=== PATIENT | male | born 1965 | race African-American/Black ===

== ENCOUNTER 2018-07-08 16:44 | Emergency (ER) | payer MEDICARE, MEDICAID ==
[~2018-07-08] VITALS: Ht 177.8 cm; Wt 80.5 kg
[~2018-07-08 16:44] MED LIST: AMLODIPINE10 MG PO; CLONIDINE0.1 MG PO; D32000 UNIT PO; LISINOP/HCTZ1 TA2 PO; LISINOP/HCTZ1 TAB PO; MYDRIACYL15 ML OD
[2018-07-08] MEDS ORDERED: KEFLEX500 M1 PO (19:17)
[2018-07-08 19:26] VITALS: BP 185/108
== END 2018-07-08 19:36 | disposition home or self-care (01) ==
LOC: ED 16:44
DX: L03.032 Cellulitis of left toe (principal); R50.9 Fever, unspecified

== ENCOUNTER 2018-08-05 03:45 | Emergency (ER) | payer MEDICARE, MEDICAID ==
[~2018-08-05] VITALS: Ht 177.8 cm; Wt 70.4 kg
[~2018-08-05 03:45] MED LIST changes: +KEFLEX500 M1 PO
[2018-08-05 04:23] LABS: HEMATOCRIT 39.4 % (39.0-50.0); HEMOGLOBIN 12.7 g/dl (14.0-18.0); IMMATURE GRANULOCYTES 0.3 % (0.0-5.0); MEAN CELL VOLUME 85.3 fL CALC (80.0-100.0); MEAN CORPUSCULAR HGB 27.5 pG CALC (26.0-32.0); MEAN CORPUSCULAR HGB CONC 32.2 g/L CALC (32.0-36.0); NEUT# 6.7 thou/uL (1.82-7.42); RED BLOOD COUNT 4.62 mill/uL (4.70-6.10); RED CELL DISTRI WIDTH 13.2 % (11.5-15.5)
[2018-08-05 04:39] LABS: ALBUMIN 4.4 g/dL (3.2-5.0); ALKALINE PHOSPHATASE 92 u/l (38-126); ANION GAP 19 (6-22 (CALC)); BILIRUBIN, TOTAL 0.7 mg/dL (0.0-1.4); BUN 33 mg/dL (9-20); BUN/CREATININE RATIO 15 (12-20 (CALC)); CARBON DIOXIDE 23 mmol/l (22-30); CHLORIDE 100 mmol/l (95-108); CREATININE 2.1 mg/dL (0.7-1.3); GFR 33 ML/MIN (>=60 (CALC)); GFR FOR AFR.AMER. 40 ML/MIN (>=60 (CALC)); MAGNESIUM 1.7 mg/dL (1.6-2.3); POTASSIUM 4.2 mmol/l (3.5-5.1); SGOT/AST 18 u/l (17-59); SODIUM 137 mmol/l (137-146); TOTAL PROTEIN 8.1 g/dL (6.3-8.2)
[2018-08-05 04:43] LABS: ETHYL ALCOHOL < 10 mg/dl (0-30)
[2018-08-05 05:15] LABS: URINE BILIRUBIN - DIPSTICK NEGATIVE (NEGATIVE); URINE BLOOD DIPSTICK NEGATIVE (NEGATIVE); URINE COLOR YELLOW; URINE GLUCOSE - DIPSTICK NEGATIVE (NEGATIVE); URINE KETONE NEGATIVE (NEGATIVE); URINE LEUK ESTERASE TRACE (NEGATIVE); URINE NITRITE - DIPSTICK NEGATIVE (Negative); URINE PROTEIN - DIPSTICK NEGATIVE (NEG-TRACE); URINE UROBILINOGEN - DIPSTICK 0.2 E.U./dL (0.2)
[2018-08-05 05:19] LABS: BARBITURATES NEGATIVE (NEGATIVE); COCAINE NEGATIVE (NEGATIVE); METHADONE NEGATIVE (NEGATIVE); OXCYCODONE NEGATIVE (NEGATIVE); TETRAHYDROCANNABIONOL NEGATIVE (NEGATIVE); TRICYLIC ANTIDEPRESSANTS NEGATIVE (NEGATIVE)
[2018-08-05] MEDS ORDERED: AMLODIPINE5 MG PO (06:31)
[2018-08-05 07:30] VITALS: BP 137/89
== END 2018-08-05 07:30 | disposition designated cancer center or children's hospital (05) ==
LOC: ED 03:45
PROVIDERS: Family Medicine
DX: T50.902A Poisoning by unspecified drugs, medicaments and biological substances, intentional self-harm, initial encounter (principal); H91.3 Deaf nonspeaking, not elsewhere classified; I10 Essential (primary) hypertension

== ENCOUNTER 2020-08-05 | Emergency (ER) | payer MEDICARE, MEDICAID ==
[~2020-08-05] MED LIST changes: +KEFLEX500 MG PO; +METOPROL TAR25 MG PO; +NORVASC5 M1 PO; +TAMSULOSIN0.4 MG PO
[2020-08-05 09:39] LABS: IMMATURE GRANULOCYTES 0.5 % (0.0-5.0); MEAN CELL VOLUME 86.7 fL CALC (80.0-100.0); MEAN CORPUSCULAR HGB 27.9 pG CALC (26.0-32.0); MEAN CORPUSCULAR HGB CONC 32.2 g/dL CAL (32.0-36.0); NEUT# 5.52 thou/uL (1.82-7.42); RED BLOOD COUNT 4.44 mill/uL (4.70-6.10); RED CELL DISTRI WIDTH 14.6 % (11.5-15.5)
[2020-08-05 09:40] LABS: HEMATOCRIT 38.5 % (39.0-50.0); HEMOGLOBIN 12.4 g/dl (14.0-18.0)
[2020-08-05 09:56] LABS: CREATININE 1.5 mg/dL (0.7-1.3)
[2020-08-05 10:08] LABS: ALBUMIN 4.6 g/dL (3.2-5.0); BILIRUBIN, TOTAL 0.7 mg/dL (0.0-1.4); TOTAL PROTEIN 8.7 g/dL (6.3-8.2)
[2020-08-05] MEDS ORDERED: INDOCIN25 MG PO (10:13)
== END 2020-08-05 10:25 | disposition home or self-care (01) ==
PROVIDERS: Emergency Medicine
DX: M10.072 Idiopathic gout, left ankle and foot (principal); I10 Essential (primary) hypertension; F17.200 Nicotine dependence, unspecified, uncomplicated

== ENCOUNTER 2021-10-29 12:32 | Emergency (ER) | payer MEDICARE, MEDICAID ==
[~2021-10-29] VITALS: Ht 185.4 cm; Wt 81.8 kg
[~2021-10-29 12:32] MED LIST changes: +INDOCIN25 MG PO
[2021-10-29] MEDS ORDERED: FAMCICLOVIR500 MG PO (13:01)
[2021-10-29 13:30] VITALS: BP 145/103
[2021-10-29] MEDS ORDERED: HYDROCO/APAP1 TA9 PO (13:46)
[2021-10-29 15:11] VITALS: BP 151/68
== END 2021-10-29 14:29 | disposition home or self-care (01) ==
LOC: ED 12:32
DX: B02.9 Zoster without complications (principal); I10 Essential (primary) hypertension; H91.90 Unspecified hearing loss, unspecified ear

== ENCOUNTER 2021-11-14 10:21 | Emergency (ER) | payer MEDICARE, MEDICAID ==
[2021-11-14] VITALS (8 sets, daily range): BP systolic 144–180; BP diastolic 101–128
[~2021-11-14] VITALS: Ht 185.4 cm; Wt 73.4 kg
[~2021-11-14 10:21] MED LIST changes: +FAMCICLOVIR500 MG PO; +HYDROCO/APAP1 TA9 PO
[2021-11-14 11:21] LABS: HEMOGLOBIN 13.8 g/dl (14.0-18.0); IMMATURE GRANULOCYTES 0.1 % (0.0-5.0); MEAN CELL VOLUME 87.6 fL CALC (80.0-100.0); MEAN CORPUSCULAR HGB 28.1 pG CALC (26.0-32.0); MEAN CORPUSCULAR HGB CONC 32.1 g/dL CAL (32.0-36.0); NEUT# 4.46 thou/uL (1.82-7.42); RED BLOOD COUNT 4.91 mill/uL (4.70-6.10); RED CELL DISTRI WIDTH 14.3 % (11.5-15.5)
[2021-11-14 12:18] LABS: ALBUMIN 4.4 g/dL (3.2-5.0); ALKALINE PHOSPHATASE 119 u/l (38-126); AMYLASE 124 u/l (30-110); BUN 12 mg/dL (9-20); BUN/CREATININE RATIO 9 (12-20 (CALC)); CHLORIDE 102 mmol/l (95-108); CREATININE 1.4 mg/dL (0.7-1.3); GFR FOR AFR.AMER. > 60 ML/MIN (>=60 (CALC)); GFR OTHER RACES 52 ML/MIN (>=60 (CALC)); LIPASE 58 u/l (23-300); POTASSIUM 3.9 mmol/l (3.5-5.1); SGOT/AST 26 u/l (17-59); SODIUM 138 mmol/l (137-146); TOTAL PROTEIN 8.7 g/dL (6.3-8.2)
[2021-11-14 12:32] LABS: ANION GAP 17 (6-22 (CALC)); BILIRUBIN, TOTAL 0.6 mg/dL (0.0-1.4); CARBON DIOXIDE 23 mmol/l (22-30)
[2021-11-14] MEDS ORDERED: GABAPENTIN300 M2 PO (14:55)
== END 2021-11-14 15:20 | disposition home or self-care (01) ==
LOC: ED 10:21
DX: B02.9 Zoster without complications (principal); I10 Essential (primary) hypertension; H91.90 Unspecified hearing loss, unspecified ear; T37.5X6A Underdosing of antiviral drugs, initial encounter; Z91.128 Patient's intentional underdosing of medication regimen for other reason

== ENCOUNTER 2021-11-25 09:56 | Emergency (ER) | payer MEDICARE, MEDICAID ==
[2021-11-25] VITALS (8 sets, daily range): BP systolic 168–193; BP diastolic 111–128
[~2021-11-25] VITALS: Ht 185.4 cm; Wt 77.2 kg
[~2021-11-25 09:56] MED LIST changes: +GABAPENTIN300 M2 PO
[2021-11-25 10:42] LABS: HEMATOCRIT 43.1 % (39.0-50.0); HEMOGLOBIN 13.9 g/dl (14.0-18.0); IMMATURE GRANULOCYTES 0.3 % (0.0-5.0); MEAN CORPUSCULAR HGB 28.4 pG CALC (26.0-32.0); MEAN CORPUSCULAR HGB CONC 32.3 g/dL CAL (32.0-36.0); NEUT# 3.85 thou/uL (1.82-7.42); RED BLOOD COUNT 4.9 mill/uL (4.70-6.10); RED CELL DISTRI WIDTH 14.3 % (11.5-15.5)
[2021-11-25 10:48] LABS: ALBUMIN 4.5 g/dL (3.2-5.0); BILIRUBIN, TOTAL 0.5 mg/dL (0.0-1.4); CREATININE 1.6 mg/dL (0.7-1.3); TOTAL PROTEIN 8.4 g/dL (6.3-8.2)
[2021-11-25] MEDS ORDERED: HYDROCO/APAP1 TA9 PO (10:59)
[2021-11-25] MEDS ORDERED: TYLENOL500 MG PO (10:59)
[2021-11-25] MEDS ORDERED: PREDNISOLO20 MG/5 ML PO (10:59)
[2021-11-25] MEDS ORDERED: IBUPROFEN600 MG PO (10:59)
[2021-11-25 11:01] LABS: POTASSIUM 4.7 mmol/l (3.5-5.1)
== END 2021-11-25 11:58 | disposition home or self-care (01) ==
LOC: ED 09:56
PROVIDERS: Family Medicine
DX: B02.29 Other postherpetic nervous system involvement (principal); I10 Essential (primary) hypertension; H91.90 Unspecified hearing loss, unspecified ear

== ENCOUNTER 2022-03-15 09:15 | Emergency (ER) | payer MEDICARE, MEDICAID ==
[2022-03-15] VITALS (12 sets, daily range): BP systolic 137–164; BP diastolic 90–112
[~2022-03-15] VITALS: Ht 185.4 cm; Wt 77.2 kg
[~2022-03-15 09:15] MED LIST changes: +IBUPROFEN600 MG PO; +PREDNISOLO20 MG/5 ML PO; +TYLENOL500 MG PO
[2022-03-15 10:12] LABS: HEMOGLOBIN 12.5 g/dl (14.0-18.0); IMMATURE GRANULOCYTES 0.2 % (0.0-5.0); MEAN CELL VOLUME 90.1 fL CALC (80.0-100.0); MEAN CORPUSCULAR HGB 28.9 pG CALC (26.0-32.0); MEAN CORPUSCULAR HGB CONC 32.1 g/dL CAL (32.0-36.0); NEUT# 4.88 thou/uL (1.82-7.42); RED BLOOD COUNT 4.33 mill/uL (4.70-6.10); RED CELL DISTRI WIDTH 15.6 % (11.5-15.5)
[2022-03-15 10:30] LABS: ALBUMIN 4.4 g/dL (3.2-5.0); ALKALINE PHOSPHATASE 84 u/l (38-126); ANION GAP 14 (6-22 (CALC)); BILIRUBIN, TOTAL 0.4 mg/dL (0.0-1.4); BUN 19 mg/dL (9-20); BUN/CREATININE RATIO 14 (12-20 (CALC)); CARBON DIOXIDE 29 mmol/l (22-30); CHLORIDE 106 mmol/l (95-108); CPK 165 u/l (52-200); CREATININE 1.4 mg/dL (0.7-1.3); GFR FOR AFR.AMER. > 60 ML/MIN (>=60 (CALC)); GFR OTHER RACES 52 ML/MIN (>=60 (CALC)); LIPASE 54 u/l (23-300); MAGNESIUM 1.4 mg/dL (1.6-2.3); POTASSIUM 4.1 mmol/l (3.5-5.1); SGOT/AST 26 u/l (17-59); SODIUM 145 mmol/l (137-146); TOTAL PROTEIN 8.2 g/dL (6.3-8.2)
[2022-03-15 10:58] LABS: URINE BILIRUBIN - DIPSTICK NEGATIVE (NEGATIVE); URINE BLOOD DIPSTICK TRACE-INTACT (NEGATIVE); URINE COLOR YELLOW; URINE GLUCOSE - DIPSTICK NEGATIVE (NEGATIVE); URINE KETONE NEGATIVE (NEGATIVE); URINE PROTEIN - DIPSTICK NEGATIVE (NEG-TRACE); URINE UROBILINOGEN - DIPSTICK 0.2 E.U./dL (0.2)
[2022-03-15 11:03] LABS: URINE LEUK ESTERASE LARGE (NEGATIVE); URINE NITRITE - DIPSTICK NEGATIVE (Negative); URINE RBC 0-2 RBC/hpf (0-5)
[2022-03-15 11:04] LABS: URINE BACTERIA FEW hpf; URINE EPITHELIAL CELLS FEW EPI/hpf (0-FEW); URINE WBC 20-50 WBC/hpf (0-5)
[2022-03-15] MEDS ORDERED: NEURONTIN300 MG PO (11:46)
[2022-03-15] MEDS ORDERED: MAGOX 400400 MG PO (11:46)
[2022-03-15] MEDS ORDERED: ACYCLOVIR800 MG PO (11:46)
[2022-03-15] MEDS ORDERED: PERCOCET 5/325M1 TAB PO (11:46)
[2022-03-15] MEDS ORDERED: OMNI-PAC300 MG PO (11:46)
== END 2022-03-15 14:10 | disposition home or self-care (01) ==
LOC: ED 09:15
PROVIDERS: Internal Medicine
DX: I10 Essential (primary) hypertension (principal); R25.8 Other abnormal involuntary movements; E16.2 Hypoglycemia, unspecified; B02.9 Zoster without complications; H91.90 Unspecified hearing loss, unspecified ear; F17.200 Nicotine dependence, unspecified, uncomplicated
CPT/HCPCS: J3475; Q9967

== ENCOUNTER 2022-12-20 15:18 | Emergency (ER) | payer MEDICARE, MEDICAID ==
[~2022-12-20] VITALS: Ht 185.4 cm; Wt 83.0 kg
[~2022-12-20 15:18] MED LIST changes: +ACYCLOVIR800 MG PO; +MAGOX 400400 MG PO; +NEURONTIN300 MG PO; +OMNI-PAC300 MG PO; +PERCOCET 5/325M1 TAB PO
[2022-12-20 15:33] VITALS: BP 124/102
[2022-12-20 16:31] LABS: URINE BILIRUBIN - DIPSTICK Negative (NEGATIVE); URINE BLOOD DIPSTICK Small (NEGATIVE); URINE GLUCOSE - DIPSTICK Negative (NEGATIVE); URINE KETONE Negative (NEGATIVE); URINE NITRITE - DIPSTICK Positive (Negative); URINE PH 5.5 (4.5-8.0); URINE PROTEIN - DIPSTICK Trace mg/dL (NEG-TRACE); URINE UROBILINOGEN - DIPSTICK 0.2 E.U./dL (0.2)
[2022-12-20 16:33] LABS: URINE COLOR Yellow; URINE LEUK ESTERASE Large (NEGATIVE)
[2022-12-20 16:40] LABS: BASO% 0.3 % (0-3); EOS% 0.6 % (0-8); HEMATOCRIT 38.6 % (39.0-50.0); HEMOGLOBIN 12.2 g/dl (14.0-18.0); IMMATURE GRANULOCYTES 0.2 % (0.0-5.0); LYMPH% 6.7 % (15-41); MEAN CELL VOLUME 86.4 fL CALC (80.0-100.0); MEAN CORPUSCULAR HGB 27.3 pG CALC (26.0-32.0); MEAN CORPUSCULAR HGB CONC 31.6 g/dL CAL (32.0-36.0); MONO% 2.6 % (2-13); NEUT# 10.35 thou/uL (1.82-7.42); NEUT% 89.6 % (42-76); RED BLOOD COUNT 4.47 mill/uL (4.70-6.10)
[2022-12-20 16:43] LABS: URINE WBC >100 WBC/hpf (0-5)
[2022-12-20 17:08] LABS: ALBUMIN 4.3 g/dL (3.2-5.0); BILIRUBIN, TOTAL 0.9 mg/dL (0.2-1.3); CREATININE 1.8 mg/dL (0.7-1.3); POTASSIUM 3.7 mmol/l (3.5-5.1); TOTAL PROTEIN 8.2 g/dL (6.3-8.2)
[2022-12-20 18:26] VITALS: BP 138/86
[2022-12-20 18:30] VITALS: BP 134/89
[2022-12-20] MEDS ORDERED: TAMSULOSIN0.4 MG PO (18:51)
[2022-12-20] MEDS ORDERED: KEFLEX500 MG PO (18:51)
[2022-12-20] MEDS ORDERED: AVODART0.5 MG PO (18:52)
[2022-12-20 19:00] VITALS: BP 141/98
--- NOTE | 2022-12-22 08:19 | NUR ---
Left message with Mr Rahman to return to the ED due to blood cultures from 12/20/22. pt is deaf and will recieve the message to return through a service he has set up
== END 2022-12-20 19:09 | disposition home or self-care (01) ==
LOC: ED 15:18
PROVIDERS: Nurse Practitioner
DX: N39.0 Urinary tract infection, site not specified (principal); R78.81 Bacteremia; I10 Essential (primary) hypertension; H91.90 Unspecified hearing loss, unspecified ear; F17.200 Nicotine dependence, unspecified, uncomplicated; Z87.440 Personal history of urinary (tract) infections; Z20.822 Contact with and (suspected) exposure to COVID-19

== ENCOUNTER 2022-12-23 11:24 | Observation (INO) | payer MEDICARE, MEDICAID ==
[~2022-12-23] VITALS: Ht 185.4 cm; Wt 82.0 kg
[2022-12-23] VITALS (8 sets, daily range): BP systolic 115–146; BP diastolic 75–123
[~2022-12-23 11:24] MED LIST changes: +AVODART0.5 MG PO
[2022-12-23 13:09] LABS: BASO% 0.5 % (0-3); EOS% 3.4 % (0-8); HEMATOCRIT 36.8 % (39.0-50.0); HEMOGLOBIN 11.8 g/dl (14.0-18.0); IMMATURE GRANULOCYTES 0.5 % (0.0-5.0); LYMPH% 24.9 % (15-41); MEAN CORPUSCULAR HGB 27.6 pG CALC (26.0-32.0); MEAN CORPUSCULAR HGB CONC 32.1 g/dL CAL (32.0-36.0); MONO% 14.5 % (2-13); NEUT# 2.48 thou/uL (1.82-7.42); NEUT% 56.2 % (42-76); RED BLOOD COUNT 4.28 mill/uL (4.70-6.10)
[2022-12-23 13:27] LABS: ALBUMIN 4.1 g/dL (3.2-5.0); POTASSIUM 3.5 mmol/l (3.5-5.1); TOTAL PROTEIN 8.1 g/dL (6.3-8.2)
[2022-12-23 13:33] LABS: BILIRUBIN, TOTAL 0.5 mg/dL (0.2-1.3)
[2022-12-23] MEDS ORDERED: TAMSULOSIN HCL0.4 MG PO (15:46)
[2022-12-23] MEDS ORDERED: ATORVASTATIN CA20 MG PO (15:47)
[2022-12-23] MEDS ORDERED: LOPRESSOR 550 MG/TAB PO (15:47)
[2022-12-23] MEDS ORDERED: ALLOPURINOL100 MG PO (15:48)
[2022-12-24] VITALS (9 sets, daily range): BP systolic 122–151; BP diastolic 72–99
[2022-12-24 08:53] LABS: HEMATOCRIT 35.5 % (39.0-50.0); HEMOGLOBIN 11.5 g/dl (14.0-18.0); MEAN CELL VOLUME 84.9 fL CALC (80.0-100.0); MEAN CORPUSCULAR HGB 27.5 pG CALC (26.0-32.0); MEAN CORPUSCULAR HGB CONC 32.4 g/dL CAL (32.0-36.0); RED BLOOD COUNT 4.18 mill/uL (4.70-6.10); RED CELL DISTRI WIDTH 13.9 % (11.5-15.5)
[2022-12-24 08:59] LABS: ALKALINE PHOSPHATASE 117 u/l (38-126); ANION GAP 14 (6-22 (CALC)); BILIRUBIN, TOTAL 0.4 mg/dL (0.2-1.3); BUN 13 mg/dL (9-20); BUN/CREATININE RATIO 10 (12-20 (CALC)); CARBON DIOXIDE 26 mmol/l (22-30); CHLORIDE 105 mmol/l (95-108); CREATININE 1.3 mg/dL (0.7-1.3); GFR FOR AFR.AMER. > 60 ML/MIN (>=60 (CALC)); GFR OTHER RACES 57 ML/MIN (>=60 (CALC)); POTASSIUM 3.5 mmol/l (3.5-5.1); SGOT/AST 51 u/l (17-59); SODIUM 142 mmol/l (137-146); TOTAL PROTEIN 7.9 g/dL (6.3-8.2)
[2022-12-25] VITALS (7 sets, daily range): BP systolic 135–161; BP diastolic 76–93
[2022-12-25 09:51] LABS: BASO% 0.7 % (0-3); EOS% 2.4 % (0-8); HEMATOCRIT 37.1 % (39.0-50.0); HEMOGLOBIN 11.7 g/dl (14.0-18.0); IMMATURE GRANULOCYTES 0.6 % (0.0-5.0); LYMPH% 29.4 % (15-41); MEAN CELL VOLUME 85.3 fL CALC (80.0-100.0); MEAN CORPUSCULAR HGB 26.9 pG CALC (26.0-32.0); MEAN CORPUSCULAR HGB CONC 31.5 g/dL CAL (32.0-36.0); MONO% 12.5 % (2-13); NEUT# 2.9 thou/uL (1.82-7.42); NEUT% 54.4 % (42-76); RED BLOOD COUNT 4.35 mill/uL (4.70-6.10); RED CELL DISTRI WIDTH 13.7 % (11.5-15.5)
[2022-12-25 10:17] LABS: ALBUMIN 4.2 g/dL (3.2-5.0); ALKALINE PHOSPHATASE 112 u/l (38-126); ANION GAP 12 (6-22 (CALC)); BILIRUBIN, TOTAL 0.5 mg/dL (0.2-1.3); BUN 10 mg/dL (9-20); BUN/CREATININE RATIO 7 (12-20 (CALC)); CARBON DIOXIDE 29 mmol/l (22-30); CHLORIDE 101 mmol/l (95-108); CREATININE 1.4 mg/dL (0.7-1.3); GFR FOR AFR.AMER. > 60 ML/MIN (>=60 (CALC)); GFR OTHER RACES 52 ML/MIN (>=60 (CALC)); MAGNESIUM 1.5 mg/dL (1.6-2.3); POTASSIUM 3.3 mmol/l (3.5-5.1); SGOT/AST 44 u/l (17-59); SODIUM 140 mmol/l (137-146); TOTAL PROTEIN 8.1 g/dL (6.3-8.2)
[2022-12-25 11:18] LABS: URINE BILIRUBIN - DIPSTICK Negative (NEGATIVE); URINE BLOOD DIPSTICK Negative (NEGATIVE); URINE GLUCOSE - DIPSTICK 100 mg/dL (NEGATIVE); URINE KETONE Negative (NEGATIVE); URINE LEUK ESTERASE Trace (NEGATIVE); URINE NITRITE - DIPSTICK Negative (Negative); URINE PH 6.5 (4.5-8.0); URINE PROTEIN - DIPSTICK Negative (NEG-TRACE); URINE SPECIFIC GRAVITY 1.015; URINE UROBILINOGEN - DIPSTICK 0.2 E.U./dL (0.2)
[2022-12-25 11:26] LABS: URINE COLOR Yellow
[2022-12-26] VITALS (11 sets, daily range): BP systolic 128–160; BP diastolic 73–94
[2022-12-26 05:28] LABS: BASO% 0.6 % (0-3); EOS% 3.4 % (0-8); HEMATOCRIT 37.1 % (39.0-50.0); HEMOGLOBIN 11.6 g/dl (14.0-18.0); IMMATURE GRANULOCYTES 1.1 % (0.0-5.0); LYMPH% 32.6 % (15-41); MEAN CELL VOLUME 86.7 fL CALC (80.0-100.0); MEAN CORPUSCULAR HGB 27.1 pG CALC (26.0-32.0); MEAN CORPUSCULAR HGB CONC 31.3 g/dL CAL (32.0-36.0); MONO% 12.5 % (2-13); NEUT# 2.66 thou/uL (1.82-7.42); NEUT% 49.8 % (42-76); RED BLOOD COUNT 4.28 mill/uL (4.70-6.10); RED CELL DISTRI WIDTH 14.2 % (11.5-15.5)
[2022-12-26 05:34] LABS: ALBUMIN 3.6 g/dL (3.2-5.0); BILIRUBIN, TOTAL 0.4 mg/dL (0.2-1.3); CREATININE 1.5 mg/dL (0.7-1.3); TOTAL PROTEIN 6.8 g/dL (6.3-8.2)
[2022-12-26 05:37] LABS: MAGNESIUM 1.9 mg/dL (1.6-2.3); POTASSIUM 4.2 mmol/l (3.5-5.1)
[2022-12-27 00:25] VITALS: BP 153/88
[2022-12-27 04:39] VITALS: BP 176/105
[2022-12-27 05:00] VITALS: BP 176/105
[2022-12-27 10:43] VITALS: BP 139/76
== END 2022-12-27 14:57 | disposition left against medical advice (07) ==
LOC: ED 11:24 → ED-I 14:20 → ED 14:38 → MS2 14:39 → ED-I 14:39 → MS2 23:15
PROVIDERS: Family Medicine; Nurse Practitioner Family; ADMIT Student in an Organized Health Care Education/Training Program; ATTEND Student in an Organized Health Care Education/Training Program
DX: R78.81 Bacteremia (principal); N39.0 Urinary tract infection, site not specified; N40.1 Benign prostatic hyperplasia with lower urinary tract symptoms; R35.0 Frequency of micturition; I10 Essential (primary) hypertension; R01.1 Cardiac murmur, unspecified; H91.90 Unspecified hearing loss, unspecified ear; F17.220 Nicotine dependence, chewing tobacco, uncomplicated; F17.290 Nicotine dependence, other tobacco product, uncomplicated
CPT/HCPCS: J1650; J3370; J3475; Q9967